=== PATIENT | male | born 1995 | race Caucasian/White ===

== ENCOUNTER 2022-12-02 11:00 | Emergency (ER) | payer BC, SELFPAY ==
[2022-12-02 11:10] VITALS: BP 119/73; PULSE 89; RESP 18; TEMP 36.5; O2SAT 99; BMI 29.5
--- NOTE | 2022-12-02 11:16 | CRLHL7_ITS ---
For Patients: As a result of the Century Cures Act, medical imaging exams and procedure reports are released immediately into your electronic medical record. You may view this report before your referring provider. If you have questions, please contact your health care provider. Indication: Shortness of breath Technique: Chest 2 views Comparison: None Findings/Impression: Cardiovascular and mediastinum: Heart size and vasculature are normal in caliber and appearance. Mediastinum is within normal limits. Lungs and pleural spaces: Lungs are clear. No sign of infiltrate or mass. No sign of pleural effusion. No pneumothorax. Bones and soft tissues: No significant findings. Dictated by Krystian Mendes MD @ 12/02/2022 12:00:48 PM (Electronically Signed)
--- NOTE | 2022-12-02 12:29 | ED.GENADULT ---
HPI - General Adult General Date Seen: 12/02/22 Chief complaint: Chest Pain Stated complaint: chest pain Time Seen by Provider: 12/02/22 12:03 Source: patient Mode of arrival: ambulatory Limitations: no limitations History of Present Illness HPI narrative: Patient is a 27-year-old male with no pertinent medical problems presenting to emergency department for chest discomfort. States Tuesday he has had sensation of something stuck in his throat. He has been able to drink fluids swallow his secretions. He has not tried to swallow anything solid since then because he is concerned he could have something stuck in his throat. Does state he has some mild shortness of breath. Denies ever having symptoms like this before. States symptoms started suddenly and he was not current eating anything at that time. Discomfort is is admits her chest region. Denies lightheadedness, dizziness abdominal pain, diarrhea constipation, fevers, chills. Related Data Home Medications Medication Instructions Recorded Confirmed albuterol sulfate 2.5 mg/3 mL mg PRN 12/02/22 (0.083 %) solution for nebulization Previous Rx's Medication Instructions Recorded pantoprazole 40 mg tablet,delayed 40 mg PO DAILY #14 tabs 12/02/22 release (Protonix) Allergies Allergy/AdvReac Type Severity Reaction Status Date / Time No Known Drug Allergies Allergy Verified 12/02/22 11:12 Review of Systems Status of ROS: Reports: 10 or more systems reviewed and unremarkable except as noted in History and below [facility] Social History Smoking Status: Never smoker How often do you have a drink containing alcohol: never How often do you have six or more drinks on one occasion: Never AUDIT-C Alcohol total score: 0 Non-prescribed substance use: denies use Exam Narrative: Exam Narrative: Const: Well-nourished, Well-developed, in mild distress Eyes: PERRL, no conjunctival injection, and symmetrical lids HENT: Atraumatic external nose and ears. Moist mucous membranes. Neck: Symmetric, trachea midline, No thyromegaly. CVS: RRR, No murmurs or gallops. Peripheral pulses 2+ and equal in all extremities RESP: Unlabored respiratory effort. Clear to auscultation bilaterally. GI: Nontender/Nondistended, No rebound or guarding. MSK:Extremities w/o deformity, Normal Active ROM Skin: Warm, Dry. No rashes or lesions. Neuro: Normal Muscle tone, No focal neurological deficits. Psych: Awake, Alert, & Oriented x3. Appropriate mood and affect. Const: Vital Signs, click to edit/add: Vital Signs - 24 hr 12/02/22 11:10 Temperature 97.7 F Pulse Rate [Pulse Oximeter] 89 Respiratory Rate 18 Blood Pressure [Ri ght Upper Arm] 119/73 Pulse Oximetry 99 Oxygen Delivery Me thod Room Air Course Vital Signs Vital signs: Initial Vital Signs Temperature 97.7 F 12/02/22 11:10 Temperature Source Temporal Artery Scan 12/02/22 11:10 Pulse Rate 89 12/02/22 11:10 Respiratory Rate 18 12/02/22 11:10 Blood Pressure 119/73 12/02/22 11:10 Blood Pressure Mean 88 12/02/22 11:10 Blood Pressure Position Sitting 12/02/22 11:10 Pulse Oximetry 99 12/02/22 11:10 Oxygen Delivery Method Room Air 12/02/22 11:10 Vital Signs Temperature 97.7 F 12/02/22 11:10 Pulse Rate 89 12/02/22 11:10 Respiratory Rate 18 12/02/22 11:10 Blood Pressure 119/73 12/02/22 11:10 Pulse Oximetry 99 12/02/22 11:10 Oxygen Delivery Method Room Air 12/02/22 11:10 Temperature 97.7 F 12/02/22 11:10 Pulse Rate 89 12/02/22 11:10 Respiratory Rate 18 12/02/22 11:10 Blood Pressure 119/73 12/02/22 11:10 Pulse Oximetry 99 12/02/22 11:10 Oxygen Delivery Method Room Air 12/02/22 11:10 Medical Decision Making [facility] Narrative Medical decision making narrative: Patient is a 27-year-old male presented to emergency department for chest discomfort. He says he has a foreign body sensation in the back of his throat. He admits to mild shortness of breath but is satting well it is not appear to be having increased respiratory effort at this time. His no tenderness to palpation of his chest and symptoms unlikely to be costochondritis. He states his symptoms happened suddenly while he was relaxing. Unlikely to be esophageal foreign body if it is it is not completely obstructive considering he is managing his secretions appropriately and drinking fluids. He does admit he had issues with GERD in the past but thinks this feels different. CBC, BMP, troponin showed no concerning abnormalities. I believe this is related to his heart or lungs. We will have him follow up outpatient with GI for possible endoscopy if symptoms continue. I will prescribe him Protonix. Lab Data Labs: Lab Results 12/02/22 12/02/22 Range/Units 12:16 12:27 WBC 7.82 (4.50-11.00) K/uL RBC 5.44 (4.30-5.90) m/uL Hgb 15.1 (13.5-17.5) gm/dL Hct 45.7 (37.0-53.0) % MCV 84 (80-100) fL MCH 28 (26-34) pg MCHC 33 (32-36) gm/dL RDW Coeff of Pedro 12.8 (11.5-15.5) % Plt Count 215 (140-440) K/uL Neut % (Auto) 75.9 H (42.0-72.0) % Lymph % (Auto) 13.7 L (20-44) % [place] % (Auto) 10.0 (0.0-11.0) % Eos % (Auto) 0.3 (0.0-7.0) % Baso % (Auto) 0.1 (0.0-3.0) % Neut # (Auto) 5.90 (1.7-7.0) K/uL Lymph # (Auto) 1.10 (0.90-2.90) K/uL [place] # (Auto) 0.80 (0.00-0.90) K/UL Eos # (Auto) 0.02 (0.00-0.50) K/uL Baso # (Auto) 0.01 (0.00-0.30) K/uL Abs Immat Gran (auto) 0.00 (0.00-0.30) K/uL Imm/Tot Granulo (auto) 0.0 % Sodium 138 (135-149) mmol/L Potassium 4.0 (3.6-5.1) mmol/L Chloride 99 (96-114) mmol/L Carbon Dioxide 27 (20-32) mmol/L Anion Gap 12 (7-15) mEq/L BUN 12 (5-24) mg/dL Creatinine 1.1 (0.5-1.5) mg/dL Estimated Creat Clear 116.24 Estimated GFR 94 ml/min Glucose 89 (60-115) mg/dL Calcium 9.3 (8.4-10.6) mg/dL POC Troponin I 0.00 L (0.01-0.04) ng/ml Imaging Data Chest x-ray: Radiologist's impression: Indication: Shortness of breath Technique: Chest 2 views Comparison: None Findings/Impression: Cardiovascular and mediastinum: Heart size and vasculature are normal in caliber and appearance. Mediastinum is within normal limits. Lungs and pleural spaces: Lungs are clear. No sign of infiltrate or mass. No sign of pleural effusion. No pneumothorax. Bones and soft tissues: No significant findings. Dictated by Krystian Mendes MD @ 12/02/2022 12:00:48 PM Discharge Plan Discharge Clinical Impression: Globus sensation Patient Disposition: Home, Self-Care Condition: Stable Instructions: Esophageal Foreign Body (ED) Additional Instructions: Follow-up with Dr. Chambers: [phone] of GI for possible endoscopy to officially rule out esophageal body of symptoms continue. Symptoms could be related to gastric reflux. Take the Protonix as directed. Also recommended he try to drink plenty of fluids and you can try eat solid foods prefer starting with small soft portions. Prescriptions: New pantoprazole [Protonix] 40 mg tablet,delayed release (DR/EC) 40 mg PO DAILY Qty: 14 0RF No Action albuterol sulfate 2.5 mg /3 mL (0.083 %) solution for nebulization PRN Patient Comments: [NO ORIGINAL SIG] Follow Up/Referrals: Graciela Marquis DO [Primary Care Provider] - Stand Alone Forms: MyHealth Info Instructions
[2022-12-02 12:43] LABS: Basophils Absolute Auto 0.01 K/uL (0.00-0.30); Basophils Percent Auto 0.1 % (0.0-3.0); Eosinophils Absolute Auto 0.02 K/uL (0.00-0.50); Eosinophils Percent Auto 0.3 % (0.0-7.0); Hematocrit 45.7 % (37.0-53.0); Hemoglobin* 15.1 gm/dL (13.5-17.5); Lymphocytes Percent Auto 13.7 % (20-44); Mean Corpuscular HGB Conc 33 gm/dL (32-36); Mean Corpuscular Hemoglobin 28 pg (26-34); Mean Corpuscular Volume 84 fL (80-100); Neutrophils Percent Auto 75.9 % (42.0-72.0); Platelet Count* 215 K/uL (140-440); RDW Coefficient of Variation % 12.8 % (11.5-15.5); Red Blood Count 5.44 m/uL (4.30-5.90); White Blood Count* 7.82 K/uL (4.50-11.00)
[2022-12-02 12:48] LABS: Slide Review Reflex No
[2022-12-02 12:52] LABS: Chloride* 99 mmol/L (96-114); Sodium* 138 mmol/L (135-149)
[2022-12-02 12:55] LABS: Anion Gap 12 mEq/L (7-15); Blood Urea Nitrogen* 12 mg/dL (5-24); Carbon Dioxide* 27 mmol/L (20-32); Creatinine* 1.1 mg/dL (0.5-1.5); Est. Creatinine Clearance* 116.24; Estimated Glomerular Filt Rate 94 ml/min; Glucose* 89 mg/dL (60-115)
[2022-12-02 12:56] LABS: Calcium* 9.3 mg/dL (8.4-10.6)
== END 2022-12-02 13:36 | disposition home or self-care (01) ==
PROVIDERS: Emergency Provider Student in an Organized Health Care Education/Training Program; PCP Family Medicine
DX: F45.8 Other somatoform disorders (principal)
CPT/HCPCS: 36415; 71046; 80048; 84484; 85025; 99283